=== PATIENT | male | born 1945 | race Caucasian/White ===

== ENCOUNTER → 2017-07-03 | Outpatient (CLI) | payer OTHER ==
[~2017-07-03] MED LIST: ALBUTEROL2.5 MG/0.5 INH; ASPIRIN EC325 M1 PO; ASPIRIN325 PO; ATORVASTATIN CA40 MG PO; BYSTOLIC 5 MG5 M1 PO; EFFIENT10 MG PO; LIVALO4 MG PO; LOPRESSOR25 PO; SYMBICORT80 MCG/4.1 INH; TOPROL XL25 MG PO; VENTOLIN HFA 1818 GM INH
== END ==
LOC: RAD 04:35
DX: J44.9 Chronic obstructive pulmonary disease, unspecified (principal); J98.4 Other disorders of lung; R63.4 Abnormal weight loss; Z87.891 Personal history of nicotine dependence

== ENCOUNTER → 2017-09-08 | Outpatient (CLI) | payer OTHER ==
[2017-09-08 16:32] LABS: CREATININE 0.9 mg/dL (0.7-1.3)
== END ==
LOC: CAT 15:50
PROVIDERS: Internal Medicine Gastroenterology
DX: I71.4 Abdominal aortic aneurysm, without rupture (principal); M47.896 Other spondylosis, lumbar region; R63.4 Abnormal weight loss

== ENCOUNTER 2019-02-14 18:23 | Emergency (ER) | payer OTHER, MEDICARE ==
[~2019-02-14] VITALS: Ht 180.3 cm; Wt 70.3 kg
[2019-02-14 19:11] LABS: HEMATOCRIT 39.5 % (42.0-52.0); HEMOGLOBIN 13.2 gm/dL (14.0-18.0); MCH 31.2 pg (26.0-34.0); MCHC 33.5 g/dL (28.0-37.0); MCV 93.1 fL (80.0-100.0); RBC 4.24 mil/uL (4.50-6.00); RDW 15.5 % (10.5-14.5)
[2019-02-14 19:23] LABS: ANION GAP 7 mmol/L (7-16); BUN 16 mg/dL (7-18); CALCIUM 9.2 mg/dL (8.5-10.1); CHLORIDE 104 mmol/L (98-107); CO2 31 mmol/L (21-32); GLUCOSE 104 mg/dL (74-106); POTASSIUM 3.7 mmol/L (3.5-5.1); SODIUM 142 mmol/L (136-145)
[2019-02-14 19:31] LABS: LIPASE 122 U/L (73-393); SGOT 15 U/L (15-37); SGPT 23 U/L (30-65); TOTAL BILIRUBIN 0.3 mg/dL (<0.1-1.0); TOTAL PROTEIN 7.1 g/dL (6.4-8.2); TROPONIN-I <0.06 ng/mL (<0.06)
[2019-02-14 20:05] LABS: ABSOLUTE NEUTROPHILS 5.1 thou/uL (1.4-8.2)
[2019-02-14 20:06] LABS: ANISOCYTOSIS 1+; LARGE PLATELETS OCCASIONAL; PLATELET COUNT 94 thou/uL (150-400)
[2019-02-14] MEDS ORDERED: DOXYCYCLINE 10100 MG PO (21:46)
[2019-02-14] MEDS ORDERED: PREDNISONE 20 M20 MG PO (21:46)
[2019-02-14 22:19] VITALS: BP 120/59
--- NOTE | 2019-02-15 00:10 | EKG ---
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 : 1945 Requested By: Caro Stanton Order Number: [id number] MD: Mark Javier Measurements Intervals [place] Rate: 87 P: 69 DE: 149 QRS: -52 QRSD: 102 T: 61 QT: 369 QTc: 444 Interpretive Statements Sinus rhythm Ventricular premature complex Probable left atrial enlargement Compared to ECG 01/11/2015 07:24:59 Ventricular premature complex(es) now present Electronically Signed On 02-15-2019 0:10:28 CDT by Mark Javier [email or web address] ��������������������������������������������� <ELECTRONICALLY SIGNED> ���������������������������������������� By: Mark Javier MD ��������������������������������������������� 02/15/19 0010 183 33 Mark Javier MD /EPI
== END 2019-02-14 22:21 | disposition home or self-care (01) ==
LOC: ER 18:23
PROVIDERS: Nurse Practitioner Family
DX: J18.8 Other pneumonia, unspecified organism (principal); J44.9 Chronic obstructive pulmonary disease, unspecified; I10 Essential (primary) hypertension; M19.90 Unspecified osteoarthritis, unspecified site; I25.10 Atherosclerotic heart disease of native coronary artery without angina pectoris; Z95.5 Presence of coronary angioplasty implant and graft; Z87.891 Personal history of nicotine dependence; Z90.49 Acquired absence of other specified parts of digestive tract

== ENCOUNTER 2019-02-19 11:41 | Inpatient (IN) | payer OTHER, MEDICARE ==
[~2019-02-19] VITALS: Ht 177.8 cm; Wt 65.8 kg
[2019-02-19] VITALS (7 sets, daily range): BP systolic 88–121; BP diastolic 57–77
--- NOTE | ~2019-02-19 | H ---
[facility] [place] [address] HISTORY AND PHYSICAL Name: EVAN BARRERA Room #: 213-P ADM IN M.R.#: [id number] Admission: 02/19/19 ������������������ Attend Phys: Markie Mcfadden MD Discharge: ������������������ Date of : 49 Report #: [id number] THIS REPORT FOR: //name// CC: Vikdelvis Renteria Markie Mcfadden DATE OF SERVICE: 02/20/2019 ATTENDING PHYSICIAN: Markie Mcfadden MD CHIEF COMPLAINT: Bleeding in his stools. HISTORY OF PRESENT ILLNESS: The patient is a 74-year-old gentleman with known history of COPD and coronary artery disease with hypertension, who was seen in the Emergency Room early part of the week with complaints of having a cough and some chest discomfort. The patient was started on oral antibiotics and some steroids. The patient was recovering at home, but continued to fare poorly. He was seen in the office again and was started on Augmentin. The next day, he noted that he was having blood in his stools and presented to the ER. The patient since then has been monitored and received 2 units of packed RBC transfusion. He had upper endoscopy done this morning, which showed evidence of multiple gastric ulcers, which appeared to be chronic and there was one that showed evidence of recent bleeding. The ulcer was cauterized and biopsies have been taken for H. pylori. The patient is now being monitored in the Coronary Care Unit. PAST MEDICAL HISTORY: Significant for history of COPD, coronary artery disease, hypertension, degenerative arthritis and small infrarenal aortic aneurysm. PAST SURGICAL HISTORY: Appendectomy and cardiac catheterization. ALLERGIES: He is not known to be allergic to any medication. MEDICATIONS: He was currently on was albuterol inhaler, aspirin, Effient, atorvastatin, metoprolol, Symbicort, and Augmentin, which was recently started. SOCIAL HISTORY: He had been smoking in the past, does not drink alcohol. REVIEW OF SYSTEMS: He reported that his cough had improved and he no longer had any chest discomfort. Denied having any fever or chills. Did complain of having some abdominal discomfort and the blood in his stools. PHYSICAL EXAMINATION: GENERAL: Pleasant elderly gentleman who was resting in bed, did not appear to be in any distress. He was awake, alert, oriented to place and person. VITAL SIGNS: He was febrile with a temperature of 36.5, pulse of 70, [facility] [address] [place] [address] HISTORY AND PHYSICAL Name: EVAN BARRERA Room #: 213-P [facility] IN ..#: [id number] Admission: 02/19/19 ������������������ Attend Phys: Markie Mcfadden MD Discharge: ������������������ Date of : 49 Report #: [id number] respiratory rate 18, blood pressure 132/79, oxygen saturation 97% on room air. HEENT: Skull was atraumatic. There was mild pallor, no icterus. Mucosa was moist. NECK: Supple. LUNGS: Clear to auscultation bilaterally with no wheezing or crackles. HEART: First and second heart sounds normal. ABDOMEN: Soft. There was no epigastric tenderness and bowel sounds are normally heard. There was no guarding. NEUROLOGIC: Nonfocal. LABORATORY DATA: On admission showed glucose was 149, sodium was 138, potassium 3.9, chloride 102, bicarbonate of 27, BUN was 46, creatinine 1.4. White cell count was 17.2, hemoglobin of 7.3 and a platelet count of 138. After 1 unit of blood, his hemoglobin was still around 7.1. White cell count had come down to 12.1. ASSESSMENT: 1. Upper gastrointestinal bleed. 2. Coronary artery disease. 3. Chronic obstructive pulmonary disease. 4. Hypertension. PLAN: To hold the aspirin and the Effient, continue on Protonix IV and monitor his blood pressure and continue his home medications for right now. ��������������������������������������������� ���������������������������������������� By: ��������������������������������������������� 1002 1109 Markie Mcfadden MD /nt
[~2019-02-19 11:41] MED LIST changes: +DOXYCYCLINE 10100 MG PO; +PREDNISONE 20 M20 MG PO
[2019-02-19] MEDS ORDERED: AUGMENTIN 875-1 EACH PO (12:10)
[2019-02-19 12:17] LABS: ABSOLUTE NEUTROPHILS 15.6 thou/uL (1.4-8.2); BASOPHILS 0.2 % (0.0-2.0); EOSINOPHILS 0.1 % (0.0-3.0); HEMATOCRIT 22.3 % (42.0-52.0); HEMOGLOBIN 7.3 gm/dL (14.0-18.0); LYMPHOCYTES 5.5 % (24.0-44.0); MCH 30.6 pg (26.0-34.0); MCHC 32.7 g/dL (28.0-37.0); MCV 93.7 fL (80.0-100.0); MONOCYTES 3.7 % (1.0-8.0); PLATELET COUNT 138 thou/uL (150-400); POLYS 90.5 % (36.0-66.0); RBC 2.38 mil/uL (4.50-6.00); RDW 15.8 % (10.5-14.5); WBC 17.2 thou/uL (4.0-11.0)
[2019-02-19 12:24] LABS: CALCIUM 8.3 mg/dL (8.5-10.1); CREATININE 1.4 mg/dL (0.7-1.3); POTASSIUM 3.9 mmol/L (3.5-5.1)
[2019-02-19 12:30] LABS: ALBUMIN 3.3 g/dL (3.4-5.0); TOTAL BILIRUBIN 0.3 mg/dL (<0.1-1.0); TOTAL PROTEIN 5.8 g/dL (6.4-8.2)
[2019-02-19 13:21] LABS: PROTIME 10.5 Seconds (9.3-11.4)
--- NOTE | 2019-02-19 18:31 | NUR ---
PT TO THE UNIT FROM THE EMERGENCY ROOM - PT WITH BLOODY STOOLS X 2 TODAY- WAS IN THE ER EARLIER THIS WEEK WITH RESP DIFFICULTIES AND WAS STARTED ON AB'S AND [PREDNSIONE AT THIS TIME. PT ORINETED TO ROOM AND BEDSPACE - ASSESSMENT CHARTED - PROTONIX DRIP CONTINUED STARTED IN THE ER. DR LUGOG IN TO SEE PATIENT - ORD H&h Q 6 HOURS. PT UP TO THE BATHROOM AND HAD BLOODY STOOL - SENT TO LAB FOR OCCULT TESTING. HAVE PLACED CALL TO DR ESPINOZA FOR ORDERS - AWAITING ORDERS OR RETURN CALL.
[2019-02-19 18:48] LABS: HEMATOCRIT 23.4 % (42.0-52.0); HEMOGLOBIN 7.9 gm/dL (14.0-18.0); MCH 30.9 pg (26.0-34.0); MCHC 33.8 g/dL (28.0-37.0); MCV 91.6 fL (80.0-100.0); RBC 2.56 mil/uL (4.50-6.00); RDW 15.5 % (10.5-14.5); WBC 14.7 thou/uL (4.0-11.0)
[2019-02-20] VITALS (9 sets, daily range): BP systolic 95–132; BP diastolic 58–79
[2019-02-20 02:19] LABS: HEMATOCRIT 21.2 % (42.0-52.0); HEMOGLOBIN 7.1 gm/dL (14.0-18.0); MCH 30.6 pg (26.0-34.0); MCHC 33.5 g/dL (28.0-37.0); MCV 91.5 fL (80.0-100.0); RBC 2.32 mil/uL (4.50-6.00); RDW 15.4 % (10.5-14.5); WBC 12.1 thou/uL (4.0-11.0)
[2019-02-20 02:22] LABS: CALCIUM 7.8 mg/dL (8.5-10.1); CREATININE 0.8 mg/dL (0.7-1.3); POTASSIUM 4.3 mmol/L (3.5-5.1)
--- NOTE | 2019-02-20 05:13 | NUR ---
1900. ASSUMED CARE FOR THE PATIENT. A0 X4. AT BEDSIDE. VITALS STABLE BUT SOFT BPs. PT ON PROTONIX DRIP FOR GI BLEED. 0NE SMALL STOOL RECOREDED OVERNIGHT, BLACK AND TARRY. Q6H CBCs BEING DONE. 0200 AM , PT HGB 7.1. FROM 7.[address] CERDA NOTIFIED. 1 UNIT OF PRBC ORDER. STARTED TRANSFUSION AT 0425. PRE VITALS STABLE, POST 15 MINUTES VITALS STABLE. PT SCHEDULED FOR AN EGD TODAY. BEEN NPO SINCE MIDNIGHT. WILL CONTINUE TO MONITOR AND FOLLOW POC.
[2019-02-20] MEDS ORDERED: PREDNISONE 20 M20 MG PO (10:18)
--- NOTE | 2019-02-20 11:45 | EKG ---
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: nathalia : 1945 Requested By: Caro Stanton Order Number: [id number] MD: Aron Snow Measurements Intervals [place] Rate: 92 P: 73 CO: 123 QRS: 2 QRSD: 103 T: 50 QT: 367 QTc: 455 Interpretive Statements Sinus rhythm Ventricular premature complex Compared to ECG 02/14/2019 18:34:42 No significant changes Electronically Signed On 02-20-2019 11:45:39 CDT by Aron Snow [email or web address] ��������������������������������������������� <ELECTRONICALLY SIGNED> ���������������������������������������� By: Aron Snow MD, [facility] ��������������������������������������������� 02/20/19 1145 16 16 Aron Snow MD, FACC /EPI
--- NOTE | 2019-02-20 14:51 | NUR ---
VSS NSR WITH PVC LUNGS REMAIN DIMINISHHED AND CLEAR WITH INTERMITTENT WHEEZES, O2 SAT RA IS 92-97%, NO FURTHER BLEEDING FROM RECTUM TODAY. UP TO BRP WITHOUT DIFFICULTY. WILL CONTINUE TO MONITER AND CARE FOR PTPER PLAN OF CARE
[2019-02-20 20:16] LABS: HEMATOCRIT 25.6 % (42.0-52.0); HEMOGLOBIN 8.7 gm/dL (14.0-18.0); MCH 30.7 pg (26.0-34.0); MCHC 34.1 g/dL (28.0-37.0); MCV 89.9 fL (80.0-100.0); RBC 2.85 mil/uL (4.50-6.00); RDW 16.5 % (10.5-14.5); WBC 11.1 thou/uL (4.0-11.0)
[2019-02-21 00:25] VITALS: BP 96/53
--- NOTE | 2019-02-21 03:05 | NUR ---
ASSUMED CARE 1899. VSS. ASSESSMENT CHARTED. AT BEDSIDE. PT DENIES ANY CONCERN. CBC AFTER SHIFT CHANGE HGB TRENDING UP SEE LABS. NO BM THIS SHIFT. NO SIGNS OF BLEEDING. CLEAR LIQUID DIET. RA CL/WHEEZY STATS WNL.SLEEPING WELL THROUGHOUT NIGHT. PROTONIX GTT PER EMAR. PLAN FOR AM LABS FOLLOWING HGB. WILL CONTINUE TO MONITOR AND WITH POC.
[2019-02-21 04:55] VITALS: BP 97/55
[2019-02-21 06:04] LABS: HEMATOCRIT 24.3 % (42.0-52.0); HEMOGLOBIN 8.3 gm/dL (14.0-18.0); MCH 30.6 pg (26.0-34.0); MCHC 34.1 g/dL (28.0-37.0); MCV 89.8 fL (80.0-100.0); RBC 2.7 mil/uL (4.50-6.00); RDW 16.3 % (10.5-14.5)
[2019-02-21 08:00] VITALS: BP 96/57
[2019-02-21 12:00] VITALS: BP 99/64
[2019-02-21 13:57] LABS: HEMATOCRIT 26.2 % (42.0-52.0); HEMOGLOBIN 8.9 gm/dL (14.0-18.0)
--- NOTE | 2019-02-21 14:03 | NUR ---
VSS NSR WITH PVC'S. LUNGS CLEAR, WHEEZE AT TIMES RA SAT IS 96%. UP IN ROOM WITHOUT DIFFICULTY. TOLERATING SOFT DIET. HGB UP TO 8.9. WILL CONTINUE TO MONITER AND CARE FOR PTPER PLAN OF CARE
[2019-02-21 17:30] VITALS: BP 123/59
[2019-02-21 18:16] LABS: HEMATOCRIT 26.3 % (42.0-52.0); HEMOGLOBIN 8.9 gm/dL (14.0-18.0); MCH 30.7 pg (26.0-34.0); MCHC 33.7 g/dL (28.0-37.0); MCV 91.1 fL (80.0-100.0); RBC 2.89 mil/uL (4.50-6.00); RDW 16.6 % (10.5-14.5); WBC 11.4 thou/uL (4.0-11.0)
[2019-02-21 19:30] VITALS: BP 97/57
--- NOTE | 2019-02-22 02:37 | NUR ---
ASSUMED CARE 1899. VSS. ASSESSMENT CHARTED. PT DENIES ANY PAIN, SOA, OR CONCERN. RA STATS WNL, CLEAR TO SLIGHTLY WHEEZY IN THE BASES AT TIMES. AD DANYELLE TO BATHROOM, AT BEDSIDE. NO SIGNS OF SYMPTOMS OF BLEEDING. NO BM TONIGHT. PT TOLERATING DIET WELL.PT HOPEFUL TO D/C THIS AM. WILL CONTINUE TO MONITOR AND WITH POC.
[2019-02-22 06:35] VITALS: BP 105/57
[2019-02-22 08:37] VITALS: BP 98/50
[2019-02-22] MEDS ORDERED: PROTONIX40 M1 PO (09:01)
[2019-02-22 10:48] VITALS: BP 98/50
--- NOTE | 2019-02-22 11:46 | NUR ---
ASSUMED CARE AT SHIFT CHANGE, ALERT AND ORIENTED X4. SR ON THE MONITOR AND VSS. S/B DR VEGA AND RADHA WAS DISCHARGED HOME WITH FAMILY.
--- NOTE | 2019-02-22 15:54 | D ---
[facility] [place] [address] DISCHARGE SUMMARY Name: EVAN BARRERA Room #: 213-P [facility] IN M.R.#: [id number] Admission: 02/19/19 ������������������ Attend Phys: Markie Mcfadden MD Discharge: 02/22/19 ������������������ Date of : 49 Report #: [id number] THIS REPORT FOR: //name// CC: Luke Mcfadden DATE OF SERVICE: 02/22/2019 FINAL DIAGNOSES: 1. Gastric ulcers. 2. Anemia due to gastrointestinal loss. 3. Chronic obstructive pulmonary disease. HOSPITAL COURSE: The patient was admitted with weakness. He was noted to have mild anemia. There was a concern for GI bleed and GI performed an EGD. Please see the dictated result, but there was evidence of nonbleeding gastric ulcers. He was placed on proton pump inhibitor therapy and symptoms improved significantly. His respiratory status was stable with no complication. On the day of discharge, he was awake and alert with stable vital signs. He was tolerating a regular diet. Hemoglobin was in the mid 8 range. PHYSICAL EXAMINATION: LUNGS: Clear. HEART: Regular. ABDOMEN: Soft, normoactive bowel sounds. EXTREMITIES: No edema. DISPOSITION: He is discharged to home with diet and activity as tolerated, Protonix 40 mg twice a day along with his inhalers for COPD. Follow up with Dr. Renteria and Dr. Ramos in 2-3 weeks. ��������������������������������������������� <ELECTRONICALLY SIGNED> ���������������������������������������� By: Yusuf Islas MD ��������������������������������������������� 02/22/19 1554 0918 1203 Yusuf Islas MD /jazlyn
--- NOTE | 2019-02-22 16:06 | PATH ---
[facility] [place] [address] PATHOLOGY RPT PROCEDURE Name: EVAN BARRERA Room #: 213-P DIS IN M.R.#: [id number] ������������������ Admission: 02/19/19 ������������������ Date of : 49 Discharge: 02/22/19 Report #: [id number] Path Case #: [id number] [facility] Accession Number: [id number] . 01 Material submitted: . BX OF GASTRITIS TO R/O H. PYLORI . 01 Clinical history: . GI bleed, anemia . 02 Diagnosis: Gastric mucosa, gastritis, rule out H. pylori, endoscopic biopsy: - Moderate active gastritis associated with intestinal metaplasia. - Negative for atrophy or dysplasia. - Negative for Helicobacter pylori (properly-controlled immunohistochemical stain performed), see comment. . (IUV:mml; 02/22/2019) QLM/02/22/2019 . 02 Comment: An intensive search for Helicobacter pylori-like organisms is negative. Absence of such organisms does not entirely exclude the possibility and may be due to sampling. Other possible etiologies may include chemical gastritis, autoimmune gastritis, gastritis associated with inflammatory bowel disease. Please correlate with clinical, endoscopic, and microbiological studies if clinically indicated. . (IUV:mml; 02/22/2019) . 02 Electronically signed: . Chiquis Hines MD, Pathologist NPI- [id number] . 01 Gross description: . The specimen is received in formalin, labeled "Evan Barrera, BX gastritis, rule out H. pylori", are few davis-red mucosal tissues measuring 0.7 x 0.5 x 0.2 cm in aggregate, entirely submitted in A1. (SWS; 02/21/2019) SHS/SHS . 02 Pathologist provided ICD-10: K29.70 . 02 CPT . 350747, L50563 Specimen Comment: A courtesy copy of [place] [address] PATHOLOGY RPT PROCEDURE Name: EVAN BARRERA Room #: 213-P DIS IN R.#: [id number] ������������������ Admission: 02/19/19 ������������������ Date of : [birth year] Discharge: 02/22/19 Report #: [id number] Path Case #: [id number] Specimen Comment: [phone], , . Specimen Comment: Report sent to ,DR ESPINOZA / DR ADAM Performed at: [address] [facility] [address], [place], [place] [id number] MD Pradeep Seo MD Phone: [phone] Performed at: [address] [id number] MD Chiquis Hines MD Phone: [phone]
--- NOTE | 2019-02-25 08:14 | P ---
[facility] [place] [address] PROCEDURE REPORT Name: EVAN BARRERA Room #: 213-P [facility] IN M.R.#: [id number] Admission: 02/19/19 ������������������ Attend Phys: Markie Mcfadden MD Discharge: 02/22/19 ������������������ Date of : [birth year] Report #: [id number] THIS REPORT FOR: //name// CC: DANISH Mcfadden DATE OF SERVICE: 02/20/2019 INPATIENT UPPER ENDOSCOPY BRIEF HISTORY: The patient is a 74-year-old male who presented to [facility] with dark bloody stools and hemoglobin in the 7 range requiring blood transfusion. PREOPERATIVE DIAGNOSIS: Gastrointestinal bleeding. POSTOPERATIVE DIAGNOSES: 1. Gastric ulcers x 2. 2. Mild erythematous gastritis. 3. Small to moderate size sliding type hiatus hernia. MEDICATIONS: Deep sedation with propofol per anesthesia. SPECIMEN: Biopsies of gastric mucosa. ESTIMATED BLOOD LOSS: 3 mL PROCEDURE: Esophagogastroduodenoscopy with biopsy and hemostasis. FINDINGS: Prior to propofol sedation, procedure of upper endoscopy was reviewed with the patient as well potential risks and its complications. He indicates he understands and desires to proceed. DESCRIPTION OF PROCEDURE: With the patient in left lateral decubitus position, the Olympus video endoscope was inserted in the cervical esophagus under direct vision without difficulty. Examination of this organ through its entire length revealed normal esophageal mucosa down the squamocolumnar junction. The squamocolumnar junction was inspected and noted to be unremarkable. No evidence of ulcers, erosions, blood or bleeding. The scope was advanced and there was about a 3 cm sliding type hiatus hernia. The mucosa in the hernia was normal. No ulcers were seen. Scope was advanced in the stomach, was examined on end view as well as retroflexed views. Examination of distal stomach revealed some mild patchy erythema. No ulcers or erosions were seen. No blood was seen. Examination of the proximal stomach revealed intact mucosa without blood or mass lesions; however, in the body of the stomach close to the junction with the [facility] [address] [place] [address] PROCEDURE REPORT Name: ATTILAEVAN GALLEGO Room #: 213-P DIS IN M.R.#: [id number] Admission: 02/19/19 ������������������ Attend Phys: Markie Mcfadden MD Discharge: 02/22/19 ������������������ Date of : 49 Report #: [id number] fundus of the stomach, was a 1 cm moderately deep ulcer with white exudate. There was no clot. There were not any raised lesions, but eccentrically within the ulcer was a black area, which was thought most likely represents a bleeding spot. In addition, on the opposite edge, there was a slight blackened area as well. It was decided to treat the ulcer. The exam with a standard endoscope was completed. The pylorus was unremarkable. Duodenal bulb was unremarkable. Duodenal sweep down to the ligament of Treitz was unremarkable and I believe, I was able to cross the ligament of Treitz and the very proximal portion of the jejunum was normal. This scope was withdrawn and we restarted this procedure with a therapeutic scope. We identified the ulcer and with use of 10-Georgian BICAP probe, we treated the flat black spot and the ulcer base without difficulty. I also treated the blackish area on the opposite edge of the ulcer crater. In addition, there was a second ulcer in the cardia of the stomach, it was an oblong-shaped ulcer of mild depth with clean white exudate without exposed vessels or clots. It was no more than about a centimeter in length. After further inspection noting there was good hemostasis and no bleeding, the scope was withdrawn. The patient tolerated the procedure well. DISPOSITION: The patient with gastrointestinal bleeding. The ulcers identified as noted above with likely bleeding sites. We will continue his PPI drip for now. We will allow him to have clear liquids later today. Also, we will have him return in about 8 weeks for followup endoscopy to ensure healing of the ulcer. ��������������������������������������������� <ELECTRONICALLY SIGNED> ���������������������������������������� By: Lincoln Ramos MD ��������������������������������������������� 02/25/19 0814 0913 0056 Lincoln Ramos MD /nt
--- NOTE | 2019-02-25 08:14 | HC ---
[facility] [place] [address] CONSULTATION Name: EVAN BARRERA Room #: 213-P [facility] IN M.R.#: [id number] Admission: 02/19/19 ������������������ Attend Phys: Markie Mcfadden MD Discharge: 02/22/19 ������������������ Date of : 49 Report #: [id number] THIS REPORT FOR: //name// CC: Raul Salcido MD [facility] Markie Mcfadden DATE OF SERVICE: 02/19/2019 BRIEF HISTORY: The patient is a 74-year-old male who presented with rectal bleeding. HISTORY OF PRESENT ILLNESS: This is a 74-year-old male who reports that he was seen in the Emergency Room at [facility] on 02/14/2019. At that time, he had complaints of cough, head and chest congestion, shortness of air, wheezing and some chest discomfort. He was evaluated in the Emergency Room. Laboratory studies revealed hemoglobin of 13.2, white count of 8000 and platelet count of 94,000. His creatinine was 1.0. His BUN was 16. He had a chest x-ray that revealed mild scarring in the mid upper lobes and no acute abnormalities. In spite of the negative CT, he was told he had an atypical pneumonia and chest wall pain and he was discharged on doxycycline 100 mg twice daily and prednisone 20 mg twice daily. Within a day or two, he developed lower abdominal cramping pain, which at times was fairly intense. He contacted his physician and the doxycycline was switched to Augmentin and he states he thought that that changed helped his symptoms. However, this morning, he woke at 3 a.m. and had 2 stools. He looked in the commode and noted that the water was bloody and appeared to be dark red in color. He did not have any loss of consciousness. Because of this bleeding, he presented to the Emergency Room at [facility] where he was seen and evaluated. In the ER, laboratory studies were obtained, which showed a white count of 7.2, hemoglobin is 7.3 with an MCV of 93.7 and a platelet count of 138,000. INR was normal. His electrolytes are normal, but his BUN was elevated at 46 and his creatinine was elevated at 1.4. His lactic acid was slightly elevated at 4.4. His bilirubin was 0.3, AST was 9, ALT was 21, alk phos of 52, albumin 3.3. He also had a CT angio because of the elevated lactate and leukocytosis. He was found to have an infrarenal abdominal aortic aneurysm, otherwise unremarkable CT. Bleeding was not reported on this study. The patient also had a colonoscopy completed by Dr. Go in 08/2017. A small adenoma was removed as well as small hyperplastic polyps. No other abnormalities were described. Specifically, the report does not indicate that there was any diverticular disease. [address] [address] CONSULTATION Name: EVAN BARRERA Room #: 213-P DIS IN M.R.#: [id number] Admission: 02/19/19 ������������������ Attend Phys: Markie Mcfadden MD Discharge: 02/22/19 ������������������ Date of : 49 Report #: [id number] PAST MEDICAL HISTORY: He has COPD, which has been a longstanding problem. He is a former cigarette smoker. He also has degenerative joint disease and a small infrarenal aortic aneurysm. PAST SURGICAL HISTORY: He had an appendectomy many years ago. Usual home medicines in addition to the prednisone and Augmentin as noted above, he takes vitamins and supplements. ALLERGIES: No known drug allergies. FAMILY HISTORY: Mother of colon cancer at age 67, which is the reason he has had several colonoscopies. SOCIAL HISTORY: . Former cigarette smoker. He does not consume alcohol. He currently works for the [employer]. REVIEW OF SYSTEMS: GENERAL: There has been no change in weight, fever or chills. CENTRAL NERVOUS SYSTEM: No focal weakness, numbness, loss of conscious, seizures or strokes. ENT: No change in vision, hearing or sores in the mouth. PULMONARY: Recent cough and congestion. No pneumonia or tuberculosis. CARDIOVASCULAR: Recent chest pain thought to be chest wall pain. No known coronary artery disease. GASTROINTESTINAL: No nausea, vomiting, hematemesis, rectal bleeding as noted above. GENITOURINARY: Without dysuria or pyuria. MUSCULOSKELETAL: Some arthralgias and lumbar back pain. SKIN: Without rashes. PSYCHIATRIC: No depression, anxiety or bipolar illness. Endocrine: He is not aware of diabetes or thyroid problems. HEMATOLOGIC: No bleeding, bruising or malignancies. PHYSICAL EXAMINATION: GENERAL: The patient is a well-developed, well-nourished, pleasant male who is awake, alert and oriented, no acute distress. VITAL SIGNS: Blood pressure 121/77, pulse rate of 81. HEENT: Anicteric. Pupils equal, round. Oropharynx clear. NECK: Supple. CHEST: Clear. HEART: Regular rate and rhythm, normal S1 and S2. ABDOMEN: Normal bowel sounds, soft, nontender, without hepatosplenomegaly or masses. RECTAL: Not done. EXTREMITIES: Without cyanosis, clubbing or edema. [facility] [address] [place] [address] CONSULTATION Name: EVAN BARRERA Room #: 213-P DIS IN M.R.#: [id number] Admission: 02/19/19 ������������������ Attend Phys: Markie Mcfadden MD Discharge: 02/22/19 ������������������ Date of : 49 Report #: [id number] NEUROLOGIC: Alert and oriented to person, place, and time. Moves all 4 extremities well. ASSESSMENT: 1. New onset gastrointestinal bleeding. 2. Chronic obstructive pulmonary disease with recent diagnosis of "atypical pneumonia," chest x-ray without acute changes. 3. Degenerative joint disease. PREOPERATIVE DIAGNOSIS: Family history of colon cancer. DISPOSITION: The patient reports the blood color was dark red. Elevation of BUN suggestive of a more proximal source. He has definitely had a significant drop in hemoglobin in the past 5 days. RECOMMENDATIONS: 1. Continue pantoprazole, which was started in the Emergency Room. 2. Monitor hemoglobin. 3. Upper endoscopy, tentatively planned for tomorrow. ��������������������������������������������� <ELECTRONICALLY SIGNED> ���������������������������������������� By: Lincoln Ramos MD ��������������������������������������������� 02/25/19 0814 [id number] 1608 Lincoln Ramos MD /nt
== END 2019-02-22 11:51 | disposition home or self-care (01) | DRG 377 ==
LOC: ER 11:41 → EROBS 14:55 → 2N 14:55 → ENTRNSPT 02-22 11:29 → EDTRNSPTSTS 02-22 11:36 → 2N 02-22 11:51
PROVIDERS: Nurse Practitioner; Nurse Practitioner Family; Specialist; ADMIT Internal Medicine
DX: K25.4 Chronic or unspecified gastric ulcer with hemorrhage (principal); N17.0 Acute kidney failure with tubular necrosis; J44.9 Chronic obstructive pulmonary disease, unspecified; I25.10 Atherosclerotic heart disease of native coronary artery without angina pectoris; I10 Essential (primary) hypertension; M19.90 Unspecified osteoarthritis, unspecified site; D72.829 Elevated white blood cell count, unspecified; D50.0 Iron deficiency anemia secondary to blood loss (chronic); K44.9 Diaphragmatic hernia without obstruction or gangrene; Z90.49 Acquired absence of other specified parts of digestive tract; Z87.891 Personal history of nicotine dependence; Z80.0 Family history of malignant neoplasm of digestive organs; Z79.899 Other long term (current) drug therapy
CPT/HCPCS: 10081; 62110; 62900

== ENCOUNTER → 2019-04-21 | Outpatient (CLI) | payer OTHER, MEDICARE ==
[~2019-04-21] VITALS: Ht 177.8 cm; Wt 68.0 kg
[~2019-04-21] MED LIST changes: +AUGMENTIN 875-1 EACH PO; +CO Q-10100 MG PO; +CVS OMEGA-3 KR1 EACH PO; +K-2 PO; +MAGOX 400400 MG PO; +PROTONIX40 M1 PO; +RESVERATROL50 MG PO; +SELENIUM200 MC3 PO; +VITAMIN B COMP1 EACH PO; +VITAMIN D-32000 UNIT PO; +VITAMIN E400 UNIT PO; +ZINC30 MG PO
--- NOTE | ~2019-04-21 | P ---
[facility] [place] [address] PROCEDURE REPORT Name: EVAN BARRERA Room #: REG Kendrick Tomasz#: [id number] Admission: 04/21/19 ������������������ Attend Phys: Lincoln Ramos MD Discharge: ������������������ Date of : 49 Report #: [id number] THIS REPORT FOR: //name// CC: DANISH Ramos OUTPATIENT UPPER ENDOSCOPY REPORT BRIEF HISTORY: The patient is a 74-year-old male who was admitted to [facility] [place] [place] in January of this year with GI bleeding. He was found to have 2 gastric ulcers and one of the ulcers was treated with BICAP. Since that time, he has done well without further evidence of bleeding. He has been on pantoprazole 40 mg daily. He presents today for repeat evaluation with regard to his bleeding ulcers. PREOPERATIVE DIAGNOSIS: Gastrointestinal bleeding ulcers. Follow up to ensure healing of ulcers. POSTOPERATIVE DIAGNOSES: 1. Mild diffuse gastritis. 2. Small hiatus hernia. MEDICATIONS: Deep sedation with propofol per anesthesia. SPECIMEN: None. ESTIMATED BLOOD LOSS: None. PROCEDURE: EGD. FINDINGS: Prior to propofol sedation, procedure of upper endoscopy was discussed with the patient as well as potential risks and its complications. He indicates he understands and desires to proceed. DESCRIPTION OF PROCEDURE: With the patient in left lateral decubitus position, the Olympus video endoscope was inserted in the cervical esophagus under direct vision without difficulty. Examination of this organ through its entire length revealed normal esophageal mucosa down the squamocolumnar junction. The squamocolumnar junction was inspected and noted to be unremarkable. The scope was advanced and there was a 2-3 cm sliding type hiatus hernia. The mucosa and hernia was unremarkable. The scope was advanced in the stomach, which was examined on end view as well as retroflexed views. There was no blood seen within the stomach. Examination of the stomach revealed two areas of scarring on the greater curvature consistent with completely healed ulcers. There is no evidence of active ulcer disease. No mass lesions were seen. He also completely. There was a diffuse gastritis, which has been previously noted. [facility] [place] [place] [address] [place] [address] PROCEDURE REPORT Name: EVAN BARRERA Room #: REG [facility].#: [id number] Admission: 04/21/19 ������������������ Attend Phys: Lincoln Ramos MD Discharge: ������������������ Date of : 49 Report #: [id number] Previous biopsies were negative for H. pylori. Upon retroflexion, the hiatus hernia was seen. No mass lesions were seen in the cardia. Examination of the distal stomach revealed erythema, but no ulcers, erosions or bleeding lesions. The pylorus was inspected and noted to be unremarkable. Duodenal bulb was unremarkable. Postbulbar duodenal sweep was unremarkable. At that point, the scope was slowly withdrawn and careful circumferential views confirmed the above findings. The patient tolerated the procedure well. CONDITION OF THE PATIENT UPON DISCHARGE: Following the procedure, the patient is drowsy and he will be discharged home when fully ambulatory. INSTRUCTIONS TO THE PATIENT AND FAMILY AT THE TIME OF DISCHARGE: The ulcers have healed completely. I discussed with the patient. He denies use of nonsteroidals. His biopsies were negative for H. pylori. The etiology of his ulcers is not entirely clear. Since he did have a major GI bleed, we will place him on prophylaxis. He is currently on pantoprazole. We will reduce the dosage to 20 mg daily, which should be adequate. We will have him return to see me in followup in the office in 6 months to further evaluate and monitor. Otherwise, return to the care of Dr. Raul Renteria. ��������������������������������������������� ���������������������������������������� By: ��������������������������������������������� [id number] Lincoln Ramos MD /jazlyn
== END | disposition home or self-care (01) ==
LOC: GI 06:31
DX: K29.70 Gastritis, unspecified, without bleeding (principal); K44.9 Diaphragmatic hernia without obstruction or gangrene; J43.1 Panlobular emphysema; I25.2 Old myocardial infarction; M19.90 Unspecified osteoarthritis, unspecified site; Z95.5 Presence of coronary angioplasty implant and graft; Z90.49 Acquired absence of other specified parts of digestive tract; D64.9 Anemia, unspecified; Z98.890 Other specified postprocedural states; Z87.891 Personal history of nicotine dependence; Z87.19 Personal history of other diseases of the digestive system; Z88.8 Allergy status to other drugs, medicaments and biological substances; Z79.899 Other long term (current) drug therapy
CPT/HCPCS: 62110; 62900

== ENCOUNTER 2019-05-03 05:59 | Inpatient (IN) | payer OTHER, MEDICARE ==
[~2019-05-03] VITALS: Ht 177.8 cm; Wt 64.9 kg
[2019-05-03 06:02] VITALS: BP 107/46
[2019-05-03 06:48] LABS: HEMATOCRIT 37.3 % (42.0-52.0); MCH 30.3 pg (26.0-34.0); MCHC 32.1 g/dL (28.0-37.0); MCV 94.4 fL (80.0-100.0); RBC 3.95 mil/uL (4.50-6.00); RDW 17.6 % (10.5-14.5); WBC 22.7 thou/uL (4.0-11.0)
[2019-05-03 07:00] LABS: ANION GAP 10 mmol/L (7-16); BUN 13 mg/dL (7-18); CALCIUM 8.7 mg/dL (8.5-10.1); CHLORIDE 99 mmol/L (98-107); CO2 30 mmol/L (21-32); CREATININE 0.9 mg/dL (0.7-1.3); GLUCOSE 103 mg/dL (74-106); SODIUM 139 mmol/L (136-145)
[2019-05-03 07:07] LABS: BE(vivo) 2.4 mmol/L (-2 to +3); HCO3 27.5 mmol/L (22.0-26.0); PCO2 44.2 mmHg (35.0-45.0); pH 7.411 (7.360-7.450); sO2 90.8 % (92.0-98.0)
[2019-05-03 07:10] LABS: DIRECT BILIRUBIN 0.2 mg/dL (<0.1-0.3); MAGNESIUM 1.9 mg/dL (1.8-2.4); SGOT 19 U/L (15-37); SGPT 22 U/L (30-65); TOTAL BILIRUBIN 0.8 mg/dL (<0.1-1.0); TOTAL PROTEIN 7.1 g/dL (6.4-8.2); TROPONIN-I <0.06 ng/mL (<0.06)
[2019-05-03 08:07] LABS: ABSOLUTE NEUTROPHILS 17.7 thou/uL (1.4-8.2); ANISOCYTOSIS 1+; MYELOCYTES 1 %; POIKILOCYTOSIS SLIGHT
[2019-05-03 08:08] LABS: LARGE PLATELETS OCCASIONAL; PLATELET COUNT 86 thou/uL (150-400); PLATELET ESTIMATE SLIGHTLY DECREASED
[2019-05-03] MEDS ORDERED: VENTOLIN HFA 1818 GM INH (08:23)
[2019-05-03] MEDS ORDERED: AUGMENTIN 875-1 EACH PO (08:23)
[2019-05-03] MEDS ORDERED: PREDNISONE 20 M20 MG PO (08:23)
--- NOTE | 2019-05-03 08:43 | NUR ---
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
--- NOTE | 2019-05-03 09:15 | EKG ---
[place] [address] [facility] [place] [address] ELECTROCARDIOGRAM REPORT Name: EVAN BARRERA Room #: REG Tomasz#: [id number] ������������������ Admission: 05/03/19 ������������������ Attend Phys: Discharge: ������������������ Date of : 49 Report #: [id number] ����������������������������������������������������������������� [id number] THIS REPORT FOR: //name// [facility] ED Test Date: 2019-05-03 Test Time: 07:12:00 Pat Name: EVAN BARRERA Department: Room: Gender: Compliance Representative: Umesh SUN RN : 1945 Requested By: Katrina Morley Order Number: [id number] MD: Aron Snow Measurements Intervals [place] Rate: 100 P: 44 PA: 130 QRS: -43 QRSD: 101 T: 40 QT: 336 QTc: 434 Interpretive Statements Sinus tachycardia Left axis deviation Compared to ECG 02/19/2019 13:17:15 Ventricular premature complex(es) no longer present Electronically Signed On 05-03-2019 9:15:38 CDT by Aron Snow [email or web address] ��������������������������������������������� <ELECTRONICALLY SIGNED> ���������������������������������������� By: Aron Snow MD, [facility] ��������������������������������������������� 05/03/19914 1 1 Aron Snow MD, FACC /EPI
[2019-05-03 10:06] VITALS: BP 106/68
[2019-05-03 10:20] VITALS: BP 118/64
--- NOTE | 2019-05-03 10:24 | NUR ---
BRADY VÁSQUEZPT US ATTEMPTING TO FIND CARLEEN MARTINEZ TO TAKE REPORT
[2019-05-03 11:00] VITALS: BP 112/69
[2019-05-03] MEDS ORDERED: IRON325 PO (11:22)
[2019-05-03 13:49] LABS: URINE BILIRUBIN NEGATIVE (Negative); URINE BLOOD NEGATIVE (Negative); URINE CLARITY CLEAR; URINE COLOR YELLOW; URINE GLUCOSE-RANDOM* NEGATIVE (Negative); URINE KETONES NEGATIVE (Negative); URINE LEUKOCYTES-REFLEX NEGATIVE (Negative); URINE NITRITE-REFLEX NEGATIVE (Negative); URINE PROTEIN (DIPSTICK) NEGATIVE (Negative); URINE UROBILINOGEN 0.2 E.U./dl (0.2-1.0)
[2019-05-03 15:11] VITALS: BP 119/73
--- NOTE | 2019-05-03 18:35 | NUR ---
PATEINT ELIDA FROM ER FOR PNEMONIA, ALERT X4, DENIES PAIN. 2-4L NASAL CANULA WITH DEMINISHED LUNG SOUNDS. FALL PRECAUTIONS DUE TO SOA WHEN AMBULATING. ADMISSION ASSESMENT AND HISTORY COMPLETED. FALL PRECAUTIONS IN PLACE CALL LIGHT IN REACH. CALLS FOR STAND BY ASSISTANCE.
[2019-05-03 19:36] VITALS: BP 124/68
--- NOTE | 2019-05-04 01:00 | NUR ---
Assumed care at 1845. Pt resting in bed. With at bedside. AOX4. VSS. Dimished lung sounds. Still experiencing SOA with ambulation. 02 reduced from 6L to 4L NC. Call light within reach. Bed in lowest position. Will continue to monitor.
[2019-05-04 05:14] LABS: HEMATOCRIT 34.4 % (42.0-52.0); HEMOGLOBIN 11.4 gm/dL (14.0-18.0); MCH 31.5 pg (26.0-34.0); MCHC 33.2 g/dL (28.0-37.0); MCV 94.8 fL (80.0-100.0); RBC 3.63 mil/uL (4.50-6.00); RDW 17.9 % (10.5-14.5); WBC 26.7 thou/uL (4.0-11.0)
[2019-05-04 05:18] VITALS: BP 105/66
[2019-05-04 05:21] LABS: CALCIUM 8.9 mg/dL (8.5-10.1); CREATININE 0.9 mg/dL (0.7-1.3); POTASSIUM 3.8 mmol/L (3.5-5.1)
[2019-05-04 07:34] VITALS: BP 110/54
--- NOTE | 2019-05-04 11:27 | NUR ---
Pt requesting order to change diet to regular which is reasonable request since he has had unintentional wt loss of 12 lb. Need physician order please.
--- NOTE | 2019-05-04 12:54 | H ---
[facility] [place] [address] HISTORY AND PHYSICAL Name: EVAN BARRERA Room #: 454-P ADM IN M.R.#: [id number] Admission: 05/03/19 ������������������ Attend Phys: Cristiana Babin Discharge: ������������������ Date of : 49 Report #: [id number] THIS REPORT FOR: //name// CC: Luke Renteria DATE OF SERVICE: 05/03/2019 CHIEF COMPLAINT: Shortness of breath and fever. HISTORY OF PRESENT ILLNESS: The patient is a 74-year-old gentleman with history of COPD, presented to the Emergency Room with shortness of breath, productive cough and fever. His said he started with some sinus drainage and upper airway congestion about a week ago. She said, however, in the last 2 days, it is worse with more congested cough, shortness of breath and a fever reported of 102 yesterday. At home, his oxygen saturations were in the low 80s and thus he presented to the ER this morning. PAST MEDICAL HISTORY: COPD, coronary artery disease with prior history of cardiac catheterization and stent in 2015. He has a small infrarenal aortic aneurysm being monitored, anemia of chronic disease, reflux. PAST SURGICAL HISTORY: Appendectomy. FAMILY HISTORY: Noncontributory. SOCIAL HISTORY: Remote 18-mxma-iupn history of smoking and currently drinks alcohol occasionally. ALLERGIES: LEVAQUIN. MEDICATIONS: Albuterol, vitamin D, vitamin B complex, zinc, magnesium, vitamin E, selenium. REVIEW OF SYSTEMS: He just complains of feeling weak, short of breath and cough. Otherwise, no headache, chest pain, abdominal pain, nausea, vomiting, diarrhea, constipation, dysuria, syncope. OBJECTIVE: VITAL SIGNS: Temperature 37.7, pulse 94, respirations 30, blood pressure 106/68, O2 sat 93% on 4 liters. GENERAL: He is awake and alert, resting in bed, in no distress. HEAD AND NECK: Unremarkable. LUNGS: Has some expiratory rhonchi. HEART: Regular, no murmur. ABDOMEN: Soft, normoactive bowel sounds. EXTREMITIES: No edema. [facility] [address] [place] [address] HISTORY AND PHYSICAL Name: EVAN BARRERA Room #: 454-P [facility] ..#: [id number] Admission: 05/03/19 ������������������ Attend Phys: Cristiana Babin Discharge: ������������������ Date of : 49 Report #: [id number] NEUROLOGIC: Motor strength 4/5 throughout. LABORATORY DATA: His white count is 22, 73% segs. Complete chemistry panel was unremarkable. Troponin and BNP negative. ABG had a pO2 of 59 on 4 liters nasal cannula. Chest x-ray shows a left basilar atelectasis and infiltrate. ASSESSMENT: 1. Community-acquired pneumonia. 2. Chronic obstructive pulmonary disease exacerbation. 3. Anemia of chronic disease. 4. Thrombocytopenia. PLAN: Continue IV antibiotics and respiratory treatments with oxygen supplementation and his usual home medications. No Lovenox DVT prophylaxis at this point due to platelets below reference range. ��������������������������������������������� <ELECTRONICALLY SIGNED> ���������������������������������������� By: Yusuf Islas MD ��������������������������������������������� 05/04/19 1254 1020 1034 Yusuf Islas MD /nt
--- NOTE | 2019-05-04 13:37 | NUR ---
Received awake on bed. Due medications given as prescribed. With O2 at 4lpm via nasal cannula. With SL at R and L Hand- patent and intact. A+Ox4. Visited by relatives today. Pt seen by Dr Islas- to continue antibiotics, for repeat chest xray tomorrow.
--- NOTE | 2019-05-04 14:36 | NUR ---
PT ADMITTED RELATED TO SHORTNESS OF AIR. CM REVIEWED CHART AND SPOKE WITH CARE TEAM. CM MET WITH PT AND SPOUSE AT BEDSIDE THIS DAY. PT IS A&O X4. CM ROLE INTRODCUED. PT INDICATED HE LIVES IN A RANCH STYLE HOUSE WITH HIS SPOUSE WITH 1 STEP TO ETNER AND NO STEPS INSIDE. 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 PT INDICATED HE HAS A NEBULIZER HOME HOME USE BUT NO O2. CM INDICATED THAT TESTING WOULD BE DONE 48 HRS PTD TO SEE IF PT QUALIFIES FOR HOME O2 AND IF NOT CM WOULD PROVIDE INFO ON RENTAL PRICES. 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 PLAN IS FOR PT TO DC HOME OCNE MEDICALLY STABLE. CM TO FOLLOW INDICATED WITH DC PLANNING.
[2019-05-04 14:37] VITALS: BP 102/65
[2019-05-04 19:40] VITALS: BP 106/57
--- NOTE | 2019-05-05 03:30 | NUR ---
ASSUMED CARE AROUND 1900. AXOX4. ON NC 2L. DENIES ANY PAIN. NO S/S ACUTE DISTRESS NOTED OR REPORTED AT THIS TIME. WILL CONT TO MONITOR FOR ANY CHANGES IN CONDITION.
[2019-05-05 04:41] VITALS: BP 115/61
[2019-05-05 05:48] LABS: HEMATOCRIT 31.9 % (42.0-52.0); HEMOGLOBIN 10.5 gm/dL (14.0-18.0); MCH 31.2 pg (26.0-34.0); MCHC 32.8 g/dL (28.0-37.0); MCV 94.9 fL (80.0-100.0); PLATELET COUNT 84 thou/uL (150-400); RBC 3.37 mil/uL (4.50-6.00); RDW 17.7 % (10.5-14.5)
[2019-05-05 06:27] LABS: ABSOLUTE NEUTROPHILS 9.9 thou/uL (1.4-8.2); PLATELET ESTIMATE DECREASED
[2019-05-05 06:28] LABS: ANISOCYTOSIS 1+; LARGE PLATELETS FEW; POIKILOCYTOSIS 1+
[2019-05-05 08:42] VITALS: BP 96/57
[2019-05-05] MEDS ORDERED: MUCINEX600 MG PO (10:46)
[2019-05-05] MEDS ORDERED: AZITHROMYCIN 2250 MG PO (10:47)
[2019-05-05] MEDS ORDERED: CEFDINIR300 MG PO (10:48)
[2019-05-05 14:03] VITALS: BP 96/57
--- NOTE | 2019-05-05 14:12 | NUR ---
PT QUALIFIED FOR HOME HEALTH OXYGEN THIS DAY. PT NEEDED 1L AT REST AND 2L WITH ACTIVITY. PT AND SPOUSE DIDN'T INDICATED ANY PREFERENCE IN O2 PROVIDERS. CM SENT REFERRAL TO [facility]. PORTABLE TANK WAS DELIVERED. PT IS TO DISCHARGE HOME THIS DAY. NO OTHER CM INTERVENTION INDICATED CASE CLOSED.
--- NOTE | 2019-05-05 14:56 | NUR ---
ASSUMED CARE OF PATIENT AT 0715, PATIENT ALERT AND ORIENTED X 4. PATIENT UP AD DANYELLE. PATIENT DENIES PAIN THIS SHIFT. PATIENT HAS O2 AT 1 LITER/NC IN PLACE SATS 95% W/O ACTIVITY. ROOM AIR AT HOME. DR VEGA HERE THIS AM. RECEIVED ORDER FOR DISCHARGE TO HOME WITH SELF CARE. DR VEGA ORDERED RT SATURATION AND EXERCISE TO SEE IF O2 NEEDED AT HOME. SEBASTIEN/RT DID TEST AND PATIENT DOES QUALIFY FOR O2 AT HOME, SATS DROP WITH EXERCISE. FLAT BED KNITTER ORDERED OXYGEN, HAS BEEN DELIVERED. PATIENT HAS BILATERAL IV'S IN PLACE, RECEIVED 2 ANTIBIOTICS PRIOR TO DISCHARGE, BOTH IV'S REMOVED PRIOR TO DISCHARGE. ALL PERSONAL BELONGINGS SENT WITH THE PATIENT, AND ALL DISCHARGE PAPERWORK SENT WITH THE PATIENT. PRESENT FOR DISCHARGE AND WILL TRANSPORT PATIENT HOME.
--- NOTE | 2019-05-09 12:16 | D ---
[facility] [place] [address] DISCHARGE SUMMARY Name: EVAN BARRERA Room #: 454-P [facility] IN M.R.#: [id number] Admission: 05/03/19 ������������������ Attend Phys: Cristiana Babin Discharge: 05/05/19 ������������������ Date of : 49 Report #: [id number] THIS REPORT FOR: //name// CC: Luke Renteria FINAL DIAGNOSES: 1. Community-acquired pneumonia. 2. Chronic obstructive pulmonary disease exacerbation. 3. Anemia of chronic disease. 4. Thrombocytopenia. HOSPITAL COURSE: The patient was admitted with shortness of breath and hypoxia related to community-acquired pneumonia. He required supplemental oxygen, was placed on nebulizer treatments, mucolytics and IV antibiotics. Followup chest x-ray was showing an early left lower lobe infiltrate. His white count decreased from 22 down 13,000. His platelet count remained low around 78-80,000 which is consistent with a prior. At this point, we will consider outpatient workup for this issue. He had no other interval complication. He will be screened for home oxygen needs. PHYSICAL EXAMINATION: GENERAL: On the day of discharge, he is awake and alert. VITAL SIGNS: Stable. LUNGS: Clear. HEART: Regular. ABDOMEN: Soft, normoactive bowel sounds. EXTREMITIES: No edema. DISPOSITION: He is discharged to home with diet and activity as tolerated, resume all home medications plus Omnicef 300 mg b.i.d. for 1 week, Zithromax 250 mg a day for 1 week and follow up with Dr. Renteria in 2 weeks. ��������������������������������������������� <ELECTRONICALLY SIGNED> ���������������������������������������� By: Yusuf Islas MD ��������������������������������������������� 05/09/19 1216 1057 1103 Yusuf Islas MD /nt
== END 2019-05-05 14:44 | disposition home or self-care (01) | DRG 190 ==
LOC: ER 05:59 → EROBS 09:26 → 4W 09:26
PROVIDERS: Emergency Medicine; Internal Medicine Geriatric Medicine; ADMIT Internal Medicine
DX: J44.0 Chronic obstructive pulmonary disease with (acute) lower respiratory infection (principal); J18.9 Pneumonia, unspecified organism; J44.1 Chronic obstructive pulmonary disease with (acute) exacerbation; D63.8 Anemia in other chronic diseases classified elsewhere; D69.6 Thrombocytopenia, unspecified; I25.10 Atherosclerotic heart disease of native coronary artery without angina pectoris; K21.9 Gastro-esophageal reflux disease without esophagitis; Z88.1 Allergy status to other antibiotic agents; Z90.49 Acquired absence of other specified parts of digestive tract; Z87.891 Personal history of nicotine dependence; Z99.81 Dependence on supplemental oxygen
CPT/HCPCS: 10040

== ENCOUNTER → 2019-11-01 | Outpatient (CLI) | payer OTHER, MEDICARE ==
[~2019-11-01] MED LIST changes: +AZITHROMYCIN 2250 MG PO; +CEFDINIR300 MG PO; +IRON325 PO; +MUCINEX600 MG PO
[2019-11-01 16:22] LABS: CREATININE 0.8 mg/dL (0.7-1.3)
== END ==
LOC: CAT 14:14
PROVIDERS: Internal Medicine Hematology & Oncology
DX: N28.1 Cyst of kidney, acquired (principal); D61.818 Other pancytopenia; D50.0 Iron deficiency anemia secondary to blood loss (chronic); M47.814 Spondylosis without myelopathy or radiculopathy, thoracic region; M47.816 Spondylosis without myelopathy or radiculopathy, lumbar region; M43.16 Spondylolisthesis, lumbar region; M51.36 Other intervertebral disc degeneration, lumbar region

== ENCOUNTER → 2019-12-12 | Outpatient (CLI) | payer OTHER, MEDICARE ==
[~2019-12-12] VITALS: Ht 170.2 cm; Wt 67.1 kg
[~2019-12-12] MED LIST changes: +VITAMIN E1000 UNIT PO
[2019-12-12 08:25] VITALS: BP 131/75
[2019-12-12 08:56] LABS: CALCIUM 8.9 mg/dL (8.5-10.1); CREATININE 0.9 mg/dL (0.7-1.3)
[2019-12-12 09:07] LABS: HEMATOCRIT 31.2 % (42.0-52.0); HEMOGLOBIN 9.8 gm/dL (14.0-18.0); MCH 31.2 pg (26.0-34.0); MCHC 31.3 % (28.0-37.0); MCV 99.5 fL (80.0-100.0); PLATELET COUNT 241 thou/uL (150-400); RBC 3.14 mil/uL (4.50-6.00); RDW 16.7 % (10.5-14.5); WBC 2.9 thou/uL (4.0-11.0)
[2019-12-12 09:55] VITALS: BP 110/64
[2019-12-12 10:32] VITALS: BP 95/56
[2019-12-12 12:33] LABS: ABSOLUTE NEUTROPHILS 1.6 thou/uL (1.4-8.2); ATYPICAL LYMPHS 2 %
[2019-12-12 12:35] LABS: ANISOCYTOSIS 2+; MACROCYTES 1+
[2019-12-12 12:36] LABS: OVALOCYTES FEW
--- NOTE | 2019-12-15 17:07 | PATH ---
[facility] [address] [place] [address] PATHOLOGY RPT PROCEDURE Name: EVAN BARRERA Room #: REG [facility] M.Gurdeep.#: [id number] Admission: 12/12/19 Date of : 49 Discharge: Report #: [id number] Path Case #: [id number] [facility] Accession Number: [id number] . 01 Material submitted: . PART A: bone - BONE MARROW BIOPSY PART B: bone - BONE MARROW CLOT PART C: bone - BONE MARROW ASPIRATE SLIDES PART D: bone - PERIPHERAL BLOOD SMEAR PART E: bone - BONE MARROW FLOW . 01 Clinical history: . 74-year-old man with leukopenia and anemia. . 02 Diagnosis: Bone marrow aspirate, biopsy, cell clot, and peripheral blood: - Peripheral blood with moderate macrocytic anemia and mild leukopenia. - Hypercellular bone marrow with trilineage hematopoiesis, mild dyspoiesis and mildly increased blasts (7% by morphology and 5% by flow cytometry). - See comment. (CLW:pit 12/15/2019) . . Special studies report received from [facility], [address] [place] [address], [address], [place], [address], on case [id number], labeled with their number [id number], dated 12/13/2019. . Flow Cytometry: Hematologic Neoplasia Assessment . Clinical History Leukopenia, anemia . Indication for Study Evaluation for hematolymphoid neoplasia . Specimen Bone Marrow . Viability 93% (7AAD exclusion) . Interpretation Bone Marrow: - An increased population of myeloblasts (5%) is identified. See comments. . Comments Considerations include a myelodysplastic syndrome with increased blasts, a [facility] [address] [place] [address] PATHOLOGY RPT PROCEDURE Name: EVAN BARRERA Room #: REG [facility].#: [id number] Admission: 12/12/19 Date of : 49 Discharge: Report #: [id number] Path Case #: [id number] chronic myeloproliferative neoplasm with increased blasts, or an evolving acute myeloid leukemia. Correlation with results of morphologic and cytogenetic analysis is recommended for a complete evaluation. . Populations Analyzed Myeloid Blasts: 5% The gated population of blasts comprises 5% of total cells. Blasts express CD34, CD117, CD13, CD33, CD45 (dim), CD38, CD11c, and HLA-DR. Blast are negative for CD4, CD10, CD11b, CD14, CD15, CD19, and CD64. Lymphocytes: 8% B-cells: 0.2%,They show kappa preponderance with an overall polytypic pattern T-cells: no significant abnormalities of the markers tested CD4+ T-cells: 5.5% (including 0.1% CD57+ cells) CD8+ T-cells: 1.3% (including 0.3% CD57+ cells) CD4:CD8: 4.2 NK cells: 0.4% Neutrophilic Cells: 80% Analysis reveals a myeloid left shift, as shown by downregulation of CD10 and CD16. Monocytic Cells: 1% No significant abnormalities of the markers tested Eosinophils: 5% No relative increase Basophils: 0.4% No relative increase Plasma Cells: 0.1% Few detected; no overt abnormalities of the surface markers tested (plasma cells are typically underrepresented by flow cytometry; cytoplasmic light chains were not assessed) . Morphologic Evaluation A slide was reviewed for air quality engineer purposes only. . Specimen Description Total Cell Yield: 8.48 X 10 and 6 . Reagent(s) Used CD2, CD3, CD4, CD5, CD7, CD8, CD10, CD11b, CD13, CD14, CD16, CD19, CD20, CD33, CD34, CD38, CD45, CD56, CD57, CD64, CD117, HLA-DR, kappa, lambda . at [facility]. Rachael Garcia MD Hematopathologist . . Intended Use Flow cytometry is optimally used to immunophenotypically characterize abnormal populations when they are detected. Negative flow cytometry [address] [address] PATHOLOGY RPT PROCEDURE Name: EVAN BARRERA Room #: REG SARAH Tolbert#: [id number] Admission: 12/12/19 Date of : 49 Discharge: Report #: [id number] Path Case #: [id number] results do not exclude lymphoma or neoplasia. Possible false negative flow cytometry results may occur in, but are not limited to, the following: neoplastic cells in Hodgkin lymphoma are not typically adequately represented by routine clinical flow cytometry; neoplastic cells may be lost or inadequately represented due to degeneration, sample processing, sampling artifact, or patchy involvement; plasma cells are typically underrepresented by flow cytometry; immature cells/blasts may be underrepresented due to hemodilution; myeloproliferative disorders and low grade myelodysplasia may not have immunophenotypic abnormalities or increased blasts. Correlation with all available clinical, laboratory, and morphologic data is always necessary to assess for the possibility of false negative flow cytometry results and to establish a diagnosis. Each marker in this analysis was used to assess for potential antigenic abnormalities or to evaluate detected abnormalities. . Disclaimer(s) This test was performed at [facility]. at [address], [address] - Color Print Inspector: Kyle Villavicencio MD. [facility] is a business unit of [email or web address], a wholly-owned subsidiary of [employer]. . Any image or images that accompany this report are fulfillment representative images only and should not be used to render a diagnosis. . This test was developed and its performance characteristics determined by [facility]. It has not been cleared or approved by the Food and Drug Administration. . For inquiries, the physician may contact Lab: [phone] . A complete copy of the report is on file. . Professional services performed by [facility] at [address], [place] [address]. Technical services performed by [facility] at [address], [place] [address]. . (JPM:amrussell 12/14/2019) [facility] 12/15/2019 1448 Local . 02 Comment: Overall the bone marrow is hypercellular for the patient's age with trilineage hematopoiesis, mild dyspoiesis and mildly increased myeloblasts. There are 7% myeloblasts by morphology and 5% by flow cytometry. The findings may represent a myelodysplastic syndrome [address] [address] PATHOLOGY RPT PROCEDURE Name: EVAN BARRERA Room #: REG [facility]..#: [id number] Admission: 12/12/19 Date of : 49 Discharge: Report #: [id number] Path Case #: [id number] (specifically myelodysplastic syndrome with excess blasts, MDS-EB). However, that diagnosis requires correlation with clinical history, additional laboratory data, and cytogenetics. Please correlate clinically. (CLW:[facility] 12/15/2019) . 02 Electronically signed: . Eula Reddy MD, Pathologist NPI- [id number] . 01 Gross description: . A. The specimen is received in formalin, labeled "Evan Barrera BM biopsy". Received is a single needle core of light davis bone measuring 0.5 cm in length by 0.3 cm in diameter. The specimen is submitted entirely in cassette A1, following light decalcification. . B. The specimen is received in formalin, labeled "Evan Barrera, BM aspirate (clot)". Received is blood coagulum measuring 0.7 x 0.7 x 0.1 cm in aggregate dimensions. The specimen is filtered and entirely submitted in cassette B1. (CAA; 12/12/2019) QAC/QA 12/12/2019 1635 Local . 02 Microscopic: . CBC Data (12/12/2019): WBC 2,900 /uL, RBC 3.14, hemoglobin 9.8 g/dL, hematocrit 31.2%, MCV 99.5 fL, MCH 31.2 pg, MCHC 31.3 g/dL, RDW 16.7%, and platelet count 241,000 /uL. White blood cell differential: segs 56%, lymphs 38%, monos 3%, basos 1% and atypical lymphs 2%. . Peripheral Blood Smear: Cytomorphological examination of the Gates's stained peripheral blood smear confirms the provided data. Red blood cells show moderate macrocytic anemia with mild anisocytosis. No significant poikilocytosis is identified. White blood cells are mildly decreased in number. They are predominantly segmented neutrophils and are without significant dyspoiesis or significant left shift. Lymphocytes are predominantly small, round, and mature appearing with condensed chromatin and scant cytoplasm with admixed granular lymphocytes. Monocytes are mature. Platelets are adequate in number and mainly normal in morphology with rare larger platelets noted. . Aspirate Smears: Cytomorphological examination of the Gates's stained aspirate smears shows spicules present. The overall cellularity is approximately 60%. The myeloid to erythroid ratio is 4.5:1. Full myeloid maturation is identified and is mildly abnormal with a mild increase in blasts and nuclear and cytoplasmic abnormalities. Erythroid maturation is mildly dyserythropoietic with irregular nuclear contours and basophilic stippling. In a 500 cell differential, there are 7% blasts (no Laura rods [address] [address] PATHOLOGY RPT PROCEDURE Name: EVAN BARRERA Room #: [facility] [id number] Admission: 12/12/19 Date of : 49 Discharge: Report #: [id number] Path Case #: [id number] are seen), 73% more differentiated myeloids, 14% erythroid precursors, 5% lymphocytes and 1% plasma cells. Megakaryocytes are proportional in number and both normal and abnormal in morphology with variable sizes and nuclear abnormalities including small and/or hypolobated forms present. No lymphoid aggregates or markedly atypical lymphoid cells are seen. Plasma cells are without atypia. Iron stain of the aspirate smear shows 1/4+ iron positivity with spicules present. No ringed sideroblasts are identified. . Core Biopsy and Cell Clot: The decalcified bone marrow core biopsy is adequate. The bone marrow is hypercellular with an overall cellularity of approximately 70%. The myeloid to erythroid ratio is mildly increased. Myeloid and erythroid maturation are mildly dyspoietic. Megakaryocytes are normal in number and both normal and abnormal in morphology. No lymphoid aggregates or markedly atypical lymphoid cells are seen. Bony trabeculae and blood vessels are unremarkable. The cell clot has spicules present that are similar in cellularity and differential morphology as previously described. . Properly controlled special stains are performed. Block A1: Iron - trace stainable iron; Reticulin - no significant reticulin fibrosis. . Block B1: Iron - 1/4+ iron positivity with spicules present. . To confirm the flow cytometry findings and to identify cells in a tissue architectural contest, properly controlled immunohistochemical stains are performed. . Block A1: CD34 - highlights mildly increased blasts; CD117 - highlights mildly increased blasts; MPO - confirms the M/E ratio; Glycophorin A - confirms the M/E ratio; CD138 - stains approximately 5% scattered plasma cells; [place] and lambda in situ hybridization - plasma cells appear polyclonal. . Block B1: CD34 - highlights mildly increased blasts comprising 5-10% of the marrow cellularity; CD117 - highlights mildly increased blasts; MPO - confirms the M/E ratio; Glycophorin A - confirms the M/E ratio; CD138 - stains approximately 5% scattered plasma cells; [place] and lambda in situ hybridization - plasma cells are polyclonal. [facility] [place] [address] PATHOLOGY RPT PROCEDURE Name: EVAN BARRERA Room #: REG SARAH ZendejasSashaGurdeep.#: [id number] Admission: 12/12/19 Date of : 49 Discharge: Report #: [id number] Path Case #: [id number] . Flow Cytometry: Flow cytometric immunophenotypic analysis was performed at [facility]. The diagnosis is "an increased population of myeloblasts (5%) is identified." There are 5% myeloid blasts. The blasts express CD34, CD117, CD13, CD33, CD45 (dim), CD38, CD11c and HLA-DR. Blasts are negative for CD4, CD10, CD11b, CD14, CD15, CD19 and CD64. There are 8% lymphocytes. Of the lymphocytes, there are 0.2% B-cells with a kappa predominance and an overall polytypic pattern. T-cells have a CD4/CD8 ratio of 4.2 and no aberrant T-cell antigen expression. Please see separate flow cytometry report from [facility] ([id number]). . Cytogenetics Analysis: Cytogenetic chromosomal analysis is pending at [facility] ([id number]). (CLW:aleksey 12/15/2019) . 02 Pathologist provided ICD-10: D64.9, D72.819 . 02 CPT . 384641, 565101, 049414, 985041, 771303, 879816, 671942, 946321, 818524, U27915, A12478, X70015, U28151, 417539 Specimen Comment: A courtesy copy of this report has been sent to [phone] Specimen Comment: [phone], Specimen Comment: Report sent to ,DR MCCARTHY,DR ADAM / DR LAUREN Performed at: 01 [facility] [address] [place] [id number] MD Pradeep Seo MD Phone: [phone] Performed at: 02 [facility] [address] [id number] MD Geovanni Crowe MD Phone: [phone]
== END | disposition home or self-care (01) ==
LOC: SPEC 07:32
PROVIDERS: Radiology Vascular & Interventional Radiology
DX: D72.819 Decreased white blood cell count, unspecified (principal); D75.89 Other specified diseases of blood and blood-forming organs; D64.9 Anemia, unspecified; I25.2 Old myocardial infarction; I25.10 Atherosclerotic heart disease of native coronary artery without angina pectoris; K21.9 Gastro-esophageal reflux disease without esophagitis; J44.9 Chronic obstructive pulmonary disease, unspecified; Z98.890 Other specified postprocedural states; Z79.899 Other long term (current) drug therapy; Z90.49 Acquired absence of other specified parts of digestive tract; Z87.19 Personal history of other diseases of the digestive system; Z88.8 Allergy status to other drugs, medicaments and biological substances

== ENCOUNTER → 2019-12-15 | Outpatient (CLI) | payer OTHER, MEDICARE | LOC: SJCVCIMAG 11:55 | DX: I25.10 Atherosclerotic heart disease of native coronary artery without angina pectoris (principal); Z95.5 Presence of coronary angioplasty implant and graft ==

== ENCOUNTER → 2020-06-18 | Outpatient (CLI) | payer OTHER, MEDICARE | LOC: SJCVCIMAG 07:52 | PROVIDERS: ATTEND Internal Medicine Cardiovascular Disease | DX: I71.4 Abdominal aortic aneurysm, without rupture (principal); Z87.891 Personal history of nicotine dependence ==

== ENCOUNTER → 2020-06-21 | Outpatient (CLI) | payer OTHER, MEDICARE | LOC: SJCVC 15:11 | PROVIDERS: ATTEND Internal Medicine Cardiovascular Disease | DX: I25.10 Atherosclerotic heart disease of native coronary artery without angina pectoris (principal); R94.31 Abnormal electrocardiogram [ECG] [EKG]; I45.10 Unspecified right bundle-branch block; E78.00 Pure hypercholesterolemia, unspecified; I71.4 Abdominal aortic aneurysm, without rupture; Z79.899 Other long term (current) drug therapy; Z87.891 Personal history of nicotine dependence ==

== ENCOUNTER → 2020-07-05 | Outpatient (CLI) | payer OTHER, MEDICARE | LOC: RAD 12:29 | PROVIDERS: ATTEND Pediatrics | DX: J44.9 Chronic obstructive pulmonary disease, unspecified (principal); R91.8 Other nonspecific abnormal finding of lung field; M43.8X4 Other specified deforming dorsopathies, thoracic region ==

== ENCOUNTER → 2020-07-09 | Outpatient (CLI) | payer OTHER, MEDICARE | LOC: CAT 08:06 | PROVIDERS: ATTEND Internal Medicine Pulmonary Disease | DX: J43.9 Emphysema, unspecified (principal); R63.4 Abnormal weight loss; N28.1 Cyst of kidney, acquired; N20.0 Calculus of kidney; J96.11 Chronic respiratory failure with hypoxia ==

== ENCOUNTER → 2021-04-12 | Outpatient (CLI) | payer OTHER, MEDICARE | LOC: SJCVCIMAG 09:52 | PROVIDERS: ATTEND Internal Medicine Cardiovascular Disease | DX: I71.4 Abdominal aortic aneurysm, without rupture (principal); I70.0 Atherosclerosis of aorta; I10 Essential (primary) hypertension; I25.10 Atherosclerotic heart disease of native coronary artery without angina pectoris; E78.00 Pure hypercholesterolemia, unspecified; I73.9 Peripheral vascular disease, unspecified; D46.9 Myelodysplastic syndrome, unspecified; J44.9 Chronic obstructive pulmonary disease, unspecified; Z90.49 Acquired absence of other specified parts of digestive tract; Z98.890 Other specified postprocedural states; Z82.49 Family history of ischemic heart disease and other diseases of the circulatory system; Z88.8 Allergy status to other drugs, medicaments and biological substances; Z79.899 Other long term (current) drug therapy; F17.210 Nicotine dependence, cigarettes, uncomplicated ==

== ENCOUNTER 2021-07-27 19:21 | Emergency (ER) | payer OTHER, MEDICARE ==
[~2021-07-27] VITALS: Ht 175.3 cm; Wt 50.7 kg
[~2021-07-27 19:21] MED LIST changes: +METRONIDAZOLE500 M4 PO
[2021-07-27 20:11] LABS: HEMOGLOBIN 10.2 gm/dL (14.0-18.0)
[2021-07-27 20:12] LABS: HEMATOCRIT 33.4 % (42.0-52.0); MCH 28.3 pg (26.0-34.0); MCHC 30.5 g/dL (28.0-37.0); MCV 92.6 fL (80.0-100.0); PLATELET COUNT 294 thou/uL (150-400); WBC 7.7 thou/uL (4.0-11.0)
[2021-07-27 20:26] LABS: POTASSIUM 4.1 mmol/L (3.5-5.1)
[2021-07-27 20:33] LABS: ALBUMIN 3.7 g/dL (3.4-5.0); DIRECT BILIRUBIN 0.1 mg/dL (<0.1-0.2); TOTAL BILIRUBIN 0.7 mg/dL (0.2-1.0); TOTAL PROTEIN 7.3 g/dL (6.4-8.2)
[2021-07-27] MEDS ORDERED: VIDAZA100 MG SUBQ (20:54)
[2021-07-27] MEDS ORDERED: RESVERATROL100 MG PO (20:55)
[2021-07-27] MEDS ORDERED: MAGNESIUM250 M1 PO (20:55)
[2021-07-27] MEDS ORDERED: TRELEGY ELLIPT1 EACH IH (20:55)
[2021-07-27 21:01] LABS: ABSOLUTE NEUTROPHILS 6.3 thou/uL (1.4-8.2)
[2021-07-27 21:02] LABS: ANISOCYTOSIS 1+; HYPOCHROMASIA 1+; MACROCYTES FEW
[2021-07-27 21:04] LABS: TARGET CELLS FEW
[2021-07-28 00:16] VITALS: BP 112/3
--- NOTE | 2021-07-30 07:35 | EKG ---
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 : 1945 Requested By: Nestor Grover Order Number: [id number] MD: Yeyo Reyes Measurements Intervals [place] Rate: 91 P: 78 NC: 136 QRS: 71 QRSD: 129 T: 74 QT: 392 QTc: 483 Interpretive Statements Sinus rhythm Multiple ventricular premature complexes Right bundle branch block Anteroseptal infarct, age indeterminate Compared to ECG 05/03/2019 07:12:00 Ventricular premature complex(es) now present Right bundle-branch block now present Myocardial infarct finding now present Sinus tachycardia no longer present Left-axis deviation no longer present Electronically Signed On 07-30-2021 7:35:07 CDT by Yeyo Reyes [email or web address] <ELECTRONICALLY SIGNED> By: Yeyo Reyes MD, FAC 07/30/21 0735 [id number] [id number] Yeyo Reyes MD, [facility] /EPI
== END 2021-07-28 00:15 | disposition home or self-care (01) ==
LOC: ER 19:21
PROVIDERS: Student in an Organized Health Care Education/Training Program
DX: K92.1 Melena (principal); K52.9 Noninfective gastroenteritis and colitis, unspecified; J44.9 Chronic obstructive pulmonary disease, unspecified; I25.10 Atherosclerotic heart disease of native coronary artery without angina pectoris; K21.9 Gastro-esophageal reflux disease without esophagitis; Z85.830 Personal history of malignant neoplasm of bone; Z90.49 Acquired absence of other specified parts of digestive tract; Z79.51 Long term (current) use of inhaled steroids; Z79.899 Other long term (current) drug therapy; Z88.5 Allergy status to narcotic agent; Z88.8 Allergy status to other drugs, medicaments and biological substances; Z87.891 Personal history of nicotine dependence

== ENCOUNTER → 2021-10-25 | Outpatient (CLI) | payer OTHER, MEDICARE ==
[~2021-10-25] MED LIST changes: +MAGNESIUM250 M1 PO; +RESVERATROL100 MG PO; +TRELEGY ELLIPT1 EACH IH; +VIDAZA100 MG SUBQ
== END ==
LOC: SJCVC 11:27
PROVIDERS: ATTEND Internal Medicine Cardiovascular Disease
DX: R94.31 Abnormal electrocardiogram [ECG] [EKG] (principal); I45.10 Unspecified right bundle-branch block; I25.10 Atherosclerotic heart disease of native coronary artery without angina pectoris; I10 Essential (primary) hypertension; E78.00 Pure hypercholesterolemia, unspecified; I71.4 Abdominal aortic aneurysm, without rupture; I73.9 Peripheral vascular disease, unspecified; D46.9 Myelodysplastic syndrome, unspecified; J44.9 Chronic obstructive pulmonary disease, unspecified; Z95.5 Presence of coronary angioplasty implant and graft; F17.210 Nicotine dependence, cigarettes, uncomplicated; Z72.89 Other problems related to lifestyle; Z82.49 Family history of ischemic heart disease and other diseases of the circulatory system; Z88.8 Allergy status to other drugs, medicaments and biological substances; Z79.899 Other long term (current) drug therapy